=== PATIENT | female | born 2005 | race Caucasian/White ===

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

== ENCOUNTER 2023-10-01 08:16 | Emergency (ER) | payer OTHER ==
[~2023-10-01] VITALS: Ht 157.5 cm; Wt 59.0 kg
[2023-10-01 08:24] VITALS: BP 133/75; PULSE 88; RESP 20; TEMP 98; O2SAT 100
[2023-10-01] MEDS ORDERED: IBUPROFEN 600 MG TAB PO ONE (09:50)
[2023-10-01] MEDS ORDERED: IBUP-1842 PO (14:02)
[2023-10-01 14:15] VITALS: BP 101/64; PULSE 90; RESP 16; TEMP 98; O2SAT 99
== END 2023-10-01 14:18 | disposition home or self-care (01) ==
LOC: MED 08:16
DX: R07.89 Other chest pain (principal); Z79.899 Other long term (current) drug therapy
CPT/HCPCS: 71045; 81025; 93005; 99283